=== PATIENT | male | born 1960 | race Caucasian/White ===

== ENCOUNTER → 2018-07-09 | Day surgery (SDC) | payer BC ==
[~2018-07-09] MED LIST: FENTANYL PF 100MCG/2ML VIAL IV ONE; LIDOCAINE 2% MDV (20MG/ML) 20ML VIAL IV ONE; PROPOFOL 10 MG/ML VIAL IV ONE
--- NOTE | 2018-07-14 09:30 | Operative Note ---
DATE OF SURGERY: SURGEON: Good Young MD OPERATION: 1. ESOPHAGOGASTRODUODENOSCOPY. 2. COLONOSCOPY. INDICATIONS: This is a 58-year-old man with history of iron deficiency anemia who presented for both esophagogastroduodenoscopy and colonoscopy. POSTOPERATIVE DIAGNOSES: 1. Large hiatal hernia. 2. Erosive gastritis with Adam lesions. 3. Normal duodenum. 4. A 6 mm rectal polyp that was removed by cold snare. 5. Otherwise normal colon and terminal ileal mucosa. ANESTHESIA: Sedation is per Anesthesia. Pulse oximetry was monitored throughout the procedure to maintain O2 saturation of 90% or greater. Supplemental oxygen was administered via nasal cannula. Cardiac and vital signs were monitored throughout the duration of the procedure, and they were stable. The procedures of esophagogastroduodenoscopy and colonoscopy and risks and benefits of the procedure, including the risk of bleeding and perforation, among others, were explained to the patient who voiced understanding and agreed to have the procedures done. Physical examination was performed, and the patient was found stable for sedation. PROCEDURE: The patient was placed in the left lateral position. Sedation was initiated. A plastic bite block was inserted into the oral cavity. The Olympus [id number] gastroscope was introduced into the oral cavity and advanced to the proximal esophagus without difficulty. The esophageal mucosa was carefully examined upon introduction of the gastroscope. The proximal and mid and distal esophageal mucosa appeared normal. The gastroscope was then advanced into the stomach, and surveillance of the stomach revealed diffuse large hiatal hernia with Adam lesions. The gastroscope was then advanced to the descending duodenum without difficulty. The duodenal bulb and descending duodenum appeared normal. The gastroscope was then withdrawn into the stomach and retroflexion was performed. There were no other lesions noted. The gastroscope was then straightened and withdrawn while carefully examining the gastric and esophageal mucosa. No other lesions noted. Multiple duodenal and gastric biopsies were obtained. The patient remained with stable vital signs and was repositioned for colonoscopy. A digital rectal exam was performed and showed some mild external hemorrhoids with no palpable rectal masses. An Olympus PCF-180AL colonoscope was then inserted into the rectum under direct visualization. It was advanced to the cecum without difficulty. The ileocecal valve and appendiceal orifice were identified and photographed. The colonic mucosa was carefully examined upon introduction of the colonoscope. There were no lesions noted. The ileocecal valve was intubated and terminal ileal mucosa was inspected for about 10 cm and it appeared normal. The colonoscope was then withdrawn while carefully examining the colonic mucosal surfaces. The cecum, ascending colon, transverse colon, descending colon, and sigmoid colon mucosa appeared normal. The bowel preparation was good. In the rectum was a 6 mm sessile polyp that was noted and was removed by cold snare. Retroflexion revealed no other lesions. The colonoscope was then withdrawn and the procedure was terminated. The patient tolerated the procedure well without any immediate complications. The patient remained with stable vital signs and was transferred to the recovery room. RECOMMENDATIONS: 1. The patient should continue on a high-fiber diet. 2. I would be happy to see him back in the office as needed. Thank you for allowing me to participate in the care of your patient. CC: Dr. Truman CORTÉS
== END | disposition home or self-care (01) ==
LOC: HOP 07:21
PROVIDERS: ATTEND Internal Medicine Gastroenterology
DX: D50.9 Iron deficiency anemia, unspecified (principal); K62.1 Rectal polyp; K44.9 Diaphragmatic hernia without obstruction or gangrene; K29.60 Other gastritis without bleeding; I10 Essential (primary) hypertension; K21.9 Gastro-esophageal reflux disease without esophagitis; E87.6 Hypokalemia